=== PATIENT | male | born 1995 | race Caucasian/White ===

== ENCOUNTER 2017-02-24 20:39 | Emergency (ER) | payer BC, MEDICAID ==
[~2017-02-24] VITALS: Ht 172.7 cm; Wt 77.3 kg
[2017-02-24] MEDS: NS 1,000 ML IV SCH ×2 (21:26→22:28)
[2017-02-24] MEDS ORDERED: MORPHINE 4 MG/ML 1ML SYRINGE IV ONE (21:30)
[2017-02-24] MEDS ORDERED: PROPOFOL 200 MG/20 ML VIAL IV PRN (21:30)
[2017-02-24] MEDS ORDERED: ONDANSETRON 4MG/2ML VIAL (J2405) IV ONE (21:30)
[2017-02-24 21:57] VITALS: BP 138/77
[2017-02-24] MEDS ORDERED: NORCOTAB PO (22:00)
[2017-02-24] MEDS ORDERED: NORCO 5/325MG TABLET (BULK FOR ED) PO ONE (22:15)
--- NOTE | 2017-02-25 09:19 | REP ---
REASON: Pain after trauma. PRIORS: None. There is an anterior glenohumeral dislocation. Only two views were obtained. The limited two views examination shows no evidence of a concomitant fracture. IMPRESSION: Anterior glenohumeral dislocation. Signed by Brennen Jeter DO 02/25/2017 09:22 A
--- NOTE | 2017-02-25 09:35 | REP ---
REASON: Status post glenohumeral reduction. The previously described glenohumeral dislocation has been reduced. The single AP portable view shows a normal glenohumeral relationship. There is no evidence of a fracture. Signed by Brennen Jeter DO 02/25/2017 10:16 A
== END 2017-02-24 22:41 | disposition home or self-care (01) ==
LOC: M ED 20:39
DX: S43.005A Unspecified dislocation of left shoulder joint, initial encounter (principal); W18.30XA Fall on same level, unspecified, initial encounter; Y92.830 Public park as the place of occurrence of the external cause; Y93.61 Activity, american tackle football; Y99.9 Unspecified external cause status
CPT/HCPCS: 73020; 73030; 93041; 94760; 96374; 96375; 99285; J2405